=== PATIENT | female | born 1970 | race Caucasian/White ===

== ENCOUNTER 2020-04-02 10:43 | Observation (INO) | payer BC, SELFPAY ==
[2020-04-02] VITALS (12 sets, daily range): BP systolic 90–129; BP diastolic 55–75; PULSE 63–85; RESP 16–20; TEMP 36.7–37.3; O2SAT 96–100; BMI 19.0
[2020-04-02 11:13] LABS: Add Manual Diff / Slide Review NO; Basophils Absolute Auto 0 /uL (0-100); Basophils Percent Auto 0.4 % (0-2); Eosinophils Absolute Auto 0 /uL (0-450); Eosinophils Percent Auto 0.1 % (2-4); Hematocrit 40.5 % (36-46); Hemoglobin 13.6 g/dL (12.0-16.0); Lymphocytes Absolute Auto 1800 /uL (1100-4500); Lymphocytes Percent Auto 16.3 % (25-40); Mean Corpuscular HGB Conc 33.6 % (30-36); Mean Corpuscular Hemoglobin 31.3 PG (26-34); Mean Corpuscular Volume 93.2 fL (80-100); Monocytes Absolute Auto 700 /uL (0-900); Monocytes Percent Auto 6.2 % (3-14); Neutrophils Absolute Auto 8300 /uL (1500-7000); Platelet Count 262 X10^3/uL (150-400); Red Blood Cell Count 4.34 X10^6/uL (4.0-5.2); Red Cell Distribution Width 12.4 % (11.6-14.8); White Blood Cell Count 10.8 X10^3/uL (4.5-11.0)
[2020-04-02 11:15] LABS: Prothrombin Time 11.8 SECONDS (10.1-12.7)
[2020-04-02 11:18] LABS: PTT Partial Thromboplastin Tim 37 SECONDS (26.4-36.2)
[2020-04-02 11:20] LABS: Alanine Aminotransferase 16 IU/L (<35); Albumin 4.8 g/dL (3.5-5.0); Albumin Globulin Ratio 1.6 (1.0-2.8); Alkaline Phosphatase 62 U/L (38-126); Aspartate Aminotransferase 23 IU/L (14-36); BUN Creatinine Ratio 14.5 (6-22); Bilirubin Total 0.8 mg/dL (0.2-1.3); Blood Urea Nitrogen 9 mg/dL (7-17); Calcium 9.1 mg/dL (8.4-10.2); Carbon Dioxide 27 mmol/L (22-32); Chloride 102 mmol/L (98-107); Estimated Glomerular Filt Rate > 60.0 mL/min (>60); Glucose 102 mg/dL (70-100); HEMOLYSIS < 15 (0-50); Lipase 64 U/L (23-300); Potassium 3.7 mmol/L (3.4-5.1); Sodium 138 mmol/L (137-145); Total Protein 7.8 g/dL (6.3-8.2)
--- NOTE | 2020-04-02 11:39 | DI.CT.S_ITS ---
PROCEDURE: CT ABDOMEN PELVIS W CON INDICATIONS: upper abd and back pain, SBO? Stone? TECHNIQUE: After the administration of intravenous contrast, 5 mm thick sections acquired from the diaphragm to the symphysis. 5 mm coronal and sagittal reformats were acquired. For radiation dose reduction, the following was used: automated exposure control, adjustment of mA and/or kV according to patient size. COMPARISON: [facility], CR, XR CHEST 2V, 04/02/2020, 11:36. FINDINGS: Image quality: Excellent. ABDOMEN: Lung bases: Lung bases are clear. Heart size is normal. Solid organs: Liver is normal in size and enhancement. Gallbladder is unremarkable. No calcified gallstones. Biliary system is non dilated. Pancreas enhances normally. Spleen is normal in size and enhancement. No adrenal nodules. Kidneys demonstrate normal size and enhancement, without hydronephrosis. Peritoneum and bowel: Multiple dilated loops of small bowel in the left abdomen. There is a possible transition point in the midline pelvis. Caliber transition is gradual. There is a fecalization within the ileum. No pneumatosis intestinalis. No free air. No fluid collection. Stomach is mildly distended. Scattered colonic diverticuli. No diverticulitis. The appendix is normal in caliber. Nodes and vessels: No retroperitoneal or mesenteric adenopathy by size criteria. Aorta and inferior vena cava are normal in size. Miscellaneous: No ventral hernias. PELVIS: Genitourinary: Bladder wall thickness is normal. Anteverted uterus. Left ovarian cyst measuring 2.8 x 2.2 cm. Miscellaneous: No inguinal hernias or adenopathy. Bones: No suspicious bony lesions. No vertebral body compression fractures. IMPRESSION: 1. Small-bowel obstruction with possible transition point in the pelvis. Stomach is mildly distended. 2. No free air. No fluid collection. 3. No kidney stones or gallstones identified. 4. Colonic diverticulosis. Dictated by: Tomi Eli M.D. on 04/02/2020 at 12:06 Approved by: Tomi Eli M.D. on 04/02/2020 at 12:16
--- NOTE | 2020-04-02 11:40 | DI.RAD.S_ITS ---
PROCEDURE: XR CHEST 2V INDICATIONS: abd pain, intermittent chest pain TECHNIQUE: 2 views of the chest were acquired. COMPARISON: None. FINDINGS: Surgical changes and devices: None. Lungs and pleura: Lungs are clear. No pleural effusions or pneumothorax. Mediastinum: Mediastinal contours are normal. Heart size is normal. Bones and chest wall: No suspicious bony abnormalities. Soft tissues appear unremarkable. IMPRESSION: No acute cardiopulmonary abnormality. Dictated by: Tomi Eli M.D. on 04/02/2020 at 12:05 Approved by: Tomi Eli M.D. on 04/02/2020 at 12:06
[2020-04-02 11:49] LABS: Creatine Kinase 51 U/L (30-135)
[2020-04-02 12:01] LABS: Troponin I < 0.012 ng/mL (0.01-0.034)
[2020-04-02] MEDS: ONDANSETRON 4 MG/2 ML INJ IV (12:02)
[2020-04-02] MEDS: SODIUM CHLORIDE 0.9% 1,000 ML 1000 ML IV (12:02)
[2020-04-02] MEDS: KETOROLAC 60 MG/2 ML VIAL 15 MG IV (12:02)
--- NOTE | 2020-04-02 12:15 | ED_ITS ---
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 with nausea. Patient denies fever, chills or vomiting. Patient denies urinary symptoms such as urgency, dysuria, hematuria, urgency or history of kidney stone. Patient reports she had to readjust postures to cope with the pain every few minutes. Patient reports pain was pretty constant last night and did not get to sleep much and had nothing to eat until this morning at 7 a.m.. Patient was at walk-in clinic and recommended to going to ED for an evaluation. At that time she had a break from discomfort for a couple of hours. After she came home, she had been to eat and drink then had recurring pain. Patient reports now pain is localized in bilateral upper abdomen. She describes her pain as sharp and aching. She had 2 bowel movements this morning but denies diarrhea. Patient denies difficulty breathing or dizziness. Patient denies URI symptoms or known exposure to Covid. She denies chest pain at this time but had experienced chest pain intermittently 3 days ago. Patient has history of . Patient usually lives in [place] and has PCP there and [facility]. Related Data Home Medications Medication Instructions Recorded Confirmed No Known Home Medications 04/02/20 04/02/20 Allergies Allergy/AdvReac Type Severity Reaction Status Date / Time metoclopramide [From Reglan] Allergy Unknown Verified 04/02/20 11:31 prochlorperazine Allergy Unknown Verified 04/02/20 11:31 Sulfa (Sulfonamide Allergy Unknown Verified 04/02/20 11:31 Antibiotics) Review of Systems <SOPHIA Lea - Last Filed: 04/03/20 02:22> Review of Systems Narrative: General: Denies fever, chills, fatigue, malaise, sweats. HEENT: Denies sinus pain, ear pain, sore throat, difficulty swallowing, dizziness. Respiratory: Denies dyspnea, cough, wheezing, hemoptysis, sputum. Cardiovascular: Denies chest pain, palpitations, orthopnea, edema. Gastrointestinal: See HPI : Denies dysuria, frequency, incontinence, hematuria, urinary retention. Musculoskeletal: See HPI Skin: Denies rash, skin lesions, or other. Neurologic: Denies weakness, headache, numbness, change in speech, confusion, seizures, incoordination. Psychiatric: No concerning psychosocial issues. 12-point review of systems is negative except for those stated above. Patient History <Burak Mota [employer] - Last Filed: 04/03/20 02:22> Surgical History (Updated 04/02/20 @ 23:29 by Issac Ac MD) Previous section (Acute) Social History household members: spouse Smoking Status: Never smoker Smoking Status: Never smoker alcohol intake frequency: 0-2 drinks per day Substance Use Type: does not use Exam <Burak MotaSOPHIA - Last Filed: 04/03/20 02:22> Narrative Exam Narrative: GEN: Alert, oriented x 3, well appearing and nourished, and in no acute distress. Head: Normal cephalic, atraumatic. No scalp or temporal tenderness, palpable mass or rash. EYES: Pupils are equal, round, and reactive to light and accommodation. Extraocular muscles are intact bilaterally. There is no subconjunctival hemorrhage, exudate and sclera non-icteric. ENT: Hearing grossly intact. Nose without bleeding, purulent discharge or deviation. Mucous membrane dry, no mucosal lesion. Throat without erythema, tonsillar hypertrophy or exudate. Uvula in midline, airway patent. Neck: Trachea in midline. No JVD, non-tender without lymphadenopathy. No masses or thyroid megaly. Supple, non-tender and no meningeal signs. CARDIAC: Normal regular rate and rhythm without murmurs, gallops, or rubs. No chest wall tenderness. No peripheral edema, cyanosis or pallor. Capillary refill is less than 2 seconds. RESPIRATORY: Lungs are clear to auscultate bilaterally. No cough, wheezes, rales, or rhonchi. No stridor, respiratory distress, increase work of fidelina athing, or accessary muscle used. ABD: Abdomen soft and non-distended. Bilateral upper abdomen tender to palpate. No guarding or rebound tenderness to palpate. Bowel sounds are normal in all 4 quadrants. There is no palpable masses or organomegaly. EXT: Full painless ROM of all extremities with no loss of sensation, strength, effusion or edema. SKIN: Warm, dry, normal color for patient. No erythema, lesions or rash over visible areas. BACK: Nontender without deformity or crepitance. No flank tenderness. NEUROLOGICAL: Alert and oriented to place, time and person. Sensation and motor function intact bilaterally. No facial droops, dysphasia. PSYCHIATRIC: Good judgement and reason, without hallucinations, abnormal affect or abnormal behaviors during the examination. Patient is not suicidal. Initial Vital Signs Initial Vital Signs: Vital Signs Temperature 99.2 F 04/02/20 10:53 Pulse Rate 75 04/02/20 10:53 Respiratory Rate 16 04/02/20 10:53 Blood Pressure 115/72 04/02/20 10:53 Pulse Oximetry 98 04/02/20 10:53 <Nikolas Arriola MD - Last Filed: 04/05/20 12:58> Initial Vital Signs Initial Vital Signs: Vital Signs Temperature 99.2 F 04/02/20 10:53 Pulse Rate 75 04/02/20 10:53 Respiratory Rate 16 04/02/20 10:53 Blood Pressure 115/72 04/02/20 10:53 Pulse Oximetry 98 04/02/20 10:53 Scores <SOPHIA Lea - Last Filed: 04/03/20 02:22> GCS [place] coma scale eye opening: Spontaneous Piyush coma scale verbal response: Orientated Piyush coma scale motor response: Obey commands Piyush coma scale total score: 15 qSOFA Altered Mental Status (GCS <15): No Respiratory rate greater than/equal to 22: No Systolic blood pressure less than or equal to 100: No qSOFA Total: 0 0-1 Not High Risk 1-3 High risk Course <SOPHIA Lea - Last Filed: 04/03/20 02:22> Orders Ordered: Discontinued Medications Hydromorphone HCl (Dilaudid) 0.5 mg IV Q6HR PRN PRN Reason: Pain, Moderate (4-6) Sodium Chloride (Normal Saline 0.9%) 1,000 mls @ 1,000 mls/hr IV BOLUS ONE Stop: 04/02/20 12:37 Last Infusion: 04/02/20 12:55 Dose: 0 mls/hr Documented by: Admin: 04/02/20 12:02 Dose: 1,000 mls/hr Documented by: MAHIN Sodium Chloride (Normal Saline 0.9%) 1,000 mls @ 100 mls/hr IV CONT LONG Last Admin: 04/03/20 01:54 Dose: 100 mls/hr Documented by: Infusion: 04/03/20 01:13 Dose: 100 mls/hr Documented by: Admin: 04/02/20 15:13 Dose: 100 mls/hr Documented by: YOVANNY Influenza Virus Vaccine (Flu Vaccine) 0.5 ml IM .ONCE ONE Stop: 04/02/20 15:31 Ketorolac Tromethamine (Toradol) 15 mg IV NOW ONE Stop: 04/02/20 11:39 Last Admin: 04/02/20 12:02 Dose: 15 mg Documented by: MAHIN Naloxone HCl (Narcan) 0.2 mg IV Q2MIN PRN PRN Reason: Opiate Reversal Ondansetron HCl (Zofran) 4 mg IV NOW ONE Stop: 04/02/20 11:39 Last Admin: 04/02/20 12:02 Dose: 4 mg Documented by: MAHIN Ondansetron HCl (Zofran) 4 mg IV Q4HR PRN PRN Reason: Nausea And Vomiting Consultations Consultation #1: Dr. Ac was consulted with CT findings, physical exam and lab results for small bowel obstruction. He kindly accepted patient's care for small obstruction and possible treatment with IV hydration and bowel rest. Time: 12:30 Vital Signs Vital signs: Vital Signs - 8 hr 04/02/20 10:53 Temperature 99.2 F Pulse Rate 75 Respiratory Rate 16 Blood Pressure 115/72 Pulse Oximetry 98 <Nikolas Arriola MD - Last Filed: 04/05/20 12:58> Orders Ordered: Discontinued Medications Hydromorphone HCl (Dilaudid) 0.5 mg IV Q6HR PRN PRN Reason: Pain, Moderate (4-6) Sodium Chloride (Normal Saline 0.9%) 1,000 mls @ 1,000 mls/hr IV BOLUS ONE Stop: 04/02/20 12:37 Last Infusion: 04/02/20 12:55 Dose: 0 mls/hr Documented by: Admin: 04/02/20 12:02 Dose: 1,000 mls/hr Documented by: MAHIN Sodium Chloride (Normal Saline 0.9%) 1,000 mls @ 100 mls/hr IV CONT LONG Last Admin: 04/03/20 01:54 Dose: 100 mls/hr Documented by: Infusion: 04/03/20 01:13 Dose: 100 mls/hr Documented by: Admin: 04/02/20 15:13 Dose: 100 mls/hr Documented by: YOVANNY Influenza Virus Vaccine (Flu Vaccine) 0.5 ml IM .ONCE ONE Stop: 04/02/20 15:31 Ketorolac Tromethamine (Toradol) 15 mg IV NOW ONE Stop: 04/02/20 11:39 Last Admin: 04/02/20 12:02 Dose: 15 mg Documented by: MAHIN Naloxone HCl (Narcan) 0.2 mg IV Q2MIN PRN PRN Reason: Opiate Reversal Ondansetron HCl (Zofran) 4 mg IV NOW ONE Stop: 04/02/20 11:39 Last Admin: 04/02/20 12:02 Dose: 4 mg Documented by: MAHIN Ondansetron HCl (Zofran) 4 mg IV Q4HR PRN PRN Reason: Nausea And Vomiting Vital Signs Vital signs: Vital Signs - 8 hr 04/02/20 10:53 Temperature 99.2 F Pulse Rate 75 Respiratory Rate 16 Blood Pressure 115/72 Pulse Oximetry 98 MDM - Abdominal Pain <Burak ShankarSOPHIA Hartley - Last Filed: 04/03/20 02:22> Differential Diagnosis Differential diagnosis: Likely abdominal pain, acute appendicitis, calculus of kidney, diverticulitis, pancreatitis, small bowel obstruction and other (Cholecystitis, STEMI, pyelonephritis) Medical Records Attestation: I reviewed the patient's medical records. Lab Data Attestation: I reviewed the patient's lab results. Result diagrams: 04/03/20 04:50 04/03/20 04:50 Labs: Lab Results 04/02/20 04/02/20 04/02/20 Range/Units 11:00 11:00 11:00 WBC 10.8 (4.5-11.0) X10^3/uL RBC 4.34 (4.0-5.2) X10^6/uL Hgb 13.6 (12.0-16.0) g/dL Hct 40.5 (36-46) % MCV 93.2 (80-100) fL MCH 31.3 (26-34) PG MCHC 33.6 (30-36) % RDW 12.4 (11.6-14.8) % Plt Count 262 (150-400) X10^3/uL Neut % (Auto) 77.0 H (50-75) % Lymph % (Auto) 16.3 L (25-40) % [place] % (Auto) 6.2 (3-14) % Eos % (Auto) 0.1 L (2-4) % Baso % (Auto) 0.4 (0-2) % Neut # (Auto) 8300 H (5248-2136) /uL Lymph # (Auto) 1800 (1352-5844) /uL [place] # (Auto) 700 (0-900) /uL Eos # (Auto) 0 (0-450) /uL Baso # (Auto) 0 (0-100) /uL PT 11.8 (10.1-12.7) SECONDS INR 1.0 (0.9-1.3) APTT 37 H (26.4-36.2) SECONDS Sodium 138 (137-145) mmol/L Potassium 3.7 (3.4-5.1) mmol/L Chloride 102 (98-107) mmol/L Carbon Dioxide 27 (22-32) mmol/L BUN 9 (7-17) mg/dL Creatinine 0.62 (0.52-1.04) mg/dL Estimated GFR > 60.0 (>60) mL/min BUN/Creatinine Ratio 14.5 (6-22) Glucose 102 H (70-100) mg/dL Calcium 9.1 (8.4-10.2) mg/dL Total Bilirubin 0.8 (0.2-1.3) mg/dL AST 23 (14-36) IU/L ALT 16 (<35) IU/L Alkaline Phosphatase 62 (38-126) U/L Total Creatine Kinase (30-135) U/L CK-MB (CK-2) CK-MB (CK-2) Rel Index Troponin I (0.01-0.034) ng/mL Total Protein 7.8 (6.3-8.2) g/dL Albumin 4.8 (3.5-5.0) g/dL Globulin 3.0 (1.7-4.1) g/dL Albumin/Globulin Ratio 1.6 (1.0-2.8) Lipase 64 (23-300) U/L COVID-19 PCR (Negative) 04/02/20 04/02/20 Range/Units 11:40 11:41 WBC (4.5-11.0) X10^3/uL RBC (4.0-5.2) X10^6/uL Hgb (12.0-16.0) g/dL Hct (36-46) % MCV (80-100) fL MCH (26-34) PG MCHC (30-36) % RDW (11.6-14.8) % Plt Count (150-400) X10^3/uL Neut % (Auto) (50-75) % Lymph % (Auto) (25-40) % [place] % (Auto) (3-14) % Eos % (Auto) (2-4) % Baso % (Auto) (0-2) % Neut # (Auto) (8003-7238) /uL Lymph # (Auto) (9689-7516) /uL [place] # (Auto) (0-900) /uL Eos # (Auto) (0-450) /uL Baso # (Auto) (0-100) /uL PT (10.1-12.7) SECONDS INR (0.9-1.3) APTT (26.4-36.2) SECONDS Sodium (137-145) mmol/L Potassium (3.4-5.1) mmol/L Chloride (98-107) mmol/L Carbon Dioxide (22-32) mmol/L BUN (7-17) mg/dL Creatinine (0.52-1.04) mg/dL Estimated GFR (>60) mL/min BUN/Creatinine Ratio (6-22) Glucose (70-100) mg/dL Calcium (8.4-10.2) mg/dL Total Bilirubin (0.2-1.3) mg/dL AST (14-36) IU/L ALT (<35) IU/L Alkaline Phosphatase (38-126) U/L Total Creatine Kinase 51 (30-135) U/L CK-MB (CK-2) TNP CK-MB (CK-2) Rel Index TNP Troponin I < 0.012 (0.01-0.034) ng/mL Total Protein (6.3-8.2) g/dL Albumin (3.5-5.0) g/dL Globulin (1.7-4.1) g/dL Albumin/Globulin Ratio (1.0-2.8) Lipase (23-300) U/L COVID-19 PCR Negative (Negative) Point of care testing: Urine Dip Bedside Urine Glucose Negative Bedside Urine Bilirubin - Negative Bedside Urine Ketone +/- 5 Urine Specific [place] 1.015 Bedside Urine Occult Blood +++ Bedside Urine pH 7 Bedside Urine Protein - Negative Bedside Urine Urobilinogen +/- 1mg Bedside Urine Nitrite - Negative Bedside Urine Leukocytes - Negative Esterase Imaging Data CT scan - abdomen/pelvis: Radiologist's Impression: [address] [address] [address] Scan Report Signed Patient: Izabela Crowley R#: [id number] : 1970Acct:[id number] Age/Sex: 50 / FDate of Service: 04/02/20 Loc: ED Accession Number: [id number] Procedure: CT abdomen pelvis w con Ordering Provider: Burak Mota PROCEDURE: CT ABDOMEN PELVIS W CON INDICATIONS: upper abd and back pain, SBO? Stone? TECHNIQUE: After the administration of intravenous contrast, 5 mm thick sections acquired from the diaphragm to the symphysis. 5 mm coronal and sagittal reformats were acquired. For radiation dose reduction, the following was used: automated exposure control, adjustment of mA and/or kV according to patient size. COMPARISON: [facility], CR, XR CHEST 2V, 04/02/2020, 11:36. FINDINGS: Image quality: Excellent. ABDOMEN: Lung bases: Lung bases are clear. Heart size is normal. Solid organs: Liver is normal in size and enhancement. Gallbladder is unremarkable. No calcified gallstones. Biliary system is non dilated. Pancreas enhances normally. Spleen is normal in size and enhancement. No adrenal nodules. Kidneys demonstrate normal size and enhancement, without hydronephrosis. Peritoneum and bowel: Multiple dilated loops of small bowel in the left abdomen. There is a possible transition point in the midline pelvis. Caliber transition is gradual. There is a fecalization within the ileum. No pneumatosis intestinalis. No free air. No fluid collection. Stomach is mildly distended. Scattered colonic diverticuli. No diverticulitis. The appendix is normal in caliber. Nodes and vessels: No retroperitoneal or mesenteric adenopathy by size criteria. Aorta and inferior vena cava are normal in size. Miscellaneous: No ventral hernias. PELVIS: Genitourinary: Bladder wall thickness is normal. Anteverted uterus. Left ovarian cyst measuring 2.8 x 2.2 cm. Miscellaneous: No inguinal hernias or adenopathy. Bones: No suspicious bony lesions. No vertebral body compression fractures. IMPRESSION: 1. Small-bowel obstruction with possible transition point in the pelvis. Stomach is mildly distended. 2. No free air. No fluid collection. 3. No kidney stones or gallstones identified. 4. Colonic diverticulosis. Dictated by: Tomi Eli M.D. on 04/02/2020 at 12:06 Approved by: Tomi Eli M.D. on 04/02/2020 at 12:16 Chest x-ray: Radiologist's Impression: [place] [address] XRay Report Signed Patient: Izabela Crowley YMR#: [id number] : 1970Acct:[id number] Age/Sex: 50 / FDate of Service: 04/02/20 Loc: ED Accession Number: [id number] Procedure: XR chest 2V Ordering Provider: Burak Mota PROCEDURE: XR CHEST 2V INDICATIONS: abd pain, intermittent chest pain TECHNIQUE: 2 views of the chest were acquired. COMPARISON: None. FINDINGS: Surgical changes and devices: None. Lungs and pleura: Lungs are clear. No pleural effusions or pneumothorax. Mediastinum: Mediastinal contours are normal. Heart size is normal. Bones and chest wall: No suspicious bony abnormalities. Soft tissues appear unremarkable. IMPRESSION: No acute cardiopulmonary abnormality. Dictated by: Tomi Eli M.D. on 04/02/2020 at 12:05 Approved by: Tomi Eli M.D. on 04/02/2020 at 12:06 ECG Data Attestation: I personally reviewed and interpreted this ECG as follows: Prior ECG tracings: not available for review Interpretation: Normal sinus rhythm rate at 72. Normal [place]. IN interval 144, QRS duration 68, QT/QTC 386/[address] changes. 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 with nausea. She feels slightly improved this morning but reports recurring pain after she had taken breakfast and fluids. Patient had 2 bowel movements this morning. Patient also reports resolved chest pain a few days ago without other cardiac symptoms. Patient is EKG shows normal sinus rhythm at [address] changes. Chest x-ray without acute findings. Patient is afebrile and hemodynamically stable. Physical exam appreciated bilateral upper abdomen tenderness to palpate. Positive bowel sounds in 4 quadrants. No leukocytosis. Stable H&H of 13.6/40.5. Unremarkable chemistry test, liver function test, lipase. Cardiac enzymes were negative. CT of abdomen pelvis obtained and showed small bowel obstruction with possible transition point in the pelvis with mildly distended stomach. There is no free air or free fluid seen in abdomen. Also seen colonic diverticulosis without acute inflammatory changes and normal appendix. Dr. Ac consulted for admission and treatment for small bowel obstruction with IV hydration and bowel rest with pain and nausea management. Patient and spouse informed the findings and pending admission to hospital. They both verbalized understanding in agreement with treatment plan. <Nikolas Arriola MD - Last Filed: 04/05/20 12:58> Lab Data Labs: Lab Results 04/02/20 04/02/20 04/02/20 Range/Units 11:00 11:00 11:00 WBC 10.8 (4.5-11.0) X10^3/uL RBC 4.34 (4.0-5.2) X10^6/uL Hgb 13.6 (12.0-16.0) g/dL Hct 40.5 (36-46) % MCV 93.2 (80-100) fL MCH 31.3 (26-34) PG MCHC 33.6 (30-36) % RDW 12.4 (11.6-14.8) % Plt Count 262 (150-400) X10^3/uL Neut % (Auto) 77.0 H (50-75) % Lymph % (Auto) 16.3 L (25-40) % [place] % (Auto) 6.2 (3-14) % Eos % (Auto) 0.1 L (2-4) % Baso % (Auto) 0.4 (0-2) % Neut # (Auto) 8300 H (2452-9641) /uL Lymph # (Auto) 1800 (9855-0219) /uL [place] # (Auto) 700 (0-900) /uL Eos # (Auto) 0 (0-450) /uL Baso # (Auto) 0 (0-100) /uL PT 11.8 (10.1-12.7) SECONDS INR 1.0 (0.9-1.3) APTT 37 H (26.4-36.2) SECONDS Sodium 138 (137-145) mmol/L Potassium 3.7 (3.4-5.1) mmol/L Chloride 102 (98-107) mmol/L Carbon Dioxide 27 (22-32) mmol/L BUN 9 (7-17) mg/dL Creatinine 0.62 (0.52-1.04) mg/dL Estimated GFR > 60.0 (>60) mL/min BUN/Creatinine Ratio 14.5 (6-22) Glucose 102 H (70-100) mg/dL Calcium 9.1 (8.4-10.2) mg/dL Total Bilirubin 0.8 (0.2-1.3) mg/dL AST 23 (14-36) IU/L ALT 16 (<35) IU/L Alkaline Phosphatase 62 (38-126) U/L Total Creatine Kinase (30-135) U/L CK-MB (CK-2) CK-MB (CK-2) Rel Index Troponin I (0.01-0.034) ng/mL Total Protein 7.8 (6.3-8.2) g/dL Albumin 4.8 (3.5-5.0) g/dL Globulin 3.0 (1.7-4.1) g/dL Albumin/Globulin Ratio 1.6 (1.0-2.8) Lipase 64 (23-300) U/L COVID-19 PCR (Negative) 04/02/20 04/02/20 Range/Units 11:40 11:41 WBC (4.5-11.0) X10^3/uL RBC (4.0-5.2) X10^6/uL Hgb (12.0-16.0) g/dL Hct (36-46) % MCV (80-100) fL MCH (26-34) PG MCHC (30-36) % RDW (11.6-14.8) % Plt Count (150-400) X10^3/uL Neut % (Auto) (50-75) % Lymph % (Auto) (25-40) % [place] % (Auto) (3-14) % Eos % (Auto) (2-4) % Baso % (Auto) (0-2) % Neut # (Auto) (1141-1436) /uL Lymph # (Auto) (1979-0006) /uL [place] # (Auto) (0-900) /uL Eos # (Auto) (0-450) /uL Baso # (Auto) (0-100) /uL PT (10.1-12.7) SECONDS INR (0.9-1.3) APTT (26.4-36.2) SECONDS Sodium (137-145) mmol/L Potassium (3.4-5.1) mmol/L Chloride (98-107) mmol/L Carbon Dioxide (22-32) mmol/L BUN (7-17) mg/dL Creatinine (0.52-1.04) mg/dL Estimated GFR (>60) mL/min BUN/Creatinine Ratio (6-22) Glucose (70-100) mg/dL Calcium (8.4-10.2) mg/dL Total Bilirubin (0.2-1.3) mg/dL AST (14-36) IU/L ALT (<35) IU/L Alkaline Phosphatase (38-126) U/L Total Creatine Kinase 51 (30-135) U/L CK-MB (CK-2) TNP CK-MB (CK-2) Rel Index TNP Troponin I < 0.012 (0.01-0.034) ng/mL Total Protein (6.3-8.2) g/dL Albumin (3.5-5.0) g/dL Globulin (1.7-4.1) g/dL Albumin/Globulin Ratio (1.0-2.8) Lipase (23-300) U/L COVID-19 PCR Negative (Negative) Point of care testing: Urine Dip Bedside Urine Glucose Negative Bedside Urine Bilirubin - Negative Bedside Urine Ketone +/- 5 Urine Specific [place] 1.015 Bedside Urine Occult Blood +++ Bedside Urine pH 7 Bedside Urine Protein - Negative Bedside Urine Urobilinogen +/- 1mg Bedside Urine Nitrite - Negative Bedside Urine Leukocytes - Negative Esterase Discharge Plan Departure Patient Disposition: Admitted As Inpatient Clinical Impression: Small bowel obstruction Discharge Date/Time: 04/02/20 13:40 Instructions: Small Bowel Obstruction Admit Date/Time: 04/02/20 12:58 Admit Provider: Issac Ac <Nikolas Arriola MD - Last Filed: 04/05/20 12:58> Cosign ED Attending Cosignature Attestation: I was immediately available in the department for consultation. This documentation has been reviewed and I agree with assessment and plan. Supervised by Nikolas Arriola MD
[2020-04-02 12:26] LABS: COVID19 -Nasal RAPID Negative (Negative)
--- NOTE | 2020-04-02 13:22 | DI.RAD.S_ITS ---
PROCEDURE: FL SMALL BOWEL FOLLOW THROUGH INDICATIONS: small bowel obstruction COMPARISON: [facility], CT, CT ABDOMEN PELVIS W CON, 04/02/2020, 11:43. FINDINGS: KUB: Preprocedural chief clerk shelter film demonstrates scattered small bowel and colonic gas. No definite dilated loops of bowel seen. The stomach is mildly distended. No suspicious abdominal calcifications. Visualized solid organ contours appear normal. No suspicious bony abnormalities. A contrast excreted into the urinary bladder and renal collecting systems. Small bowel: There is normal transit time of barium through the small bowel reaching the colon at 45 minutes. The dilated loops of small bowel in the left abdomen seen on CT earlier today are no longer identified. Mucosal folds are smooth and of normal thickness. No obvious strictures, intraluminal masses, or extrinsic mass effects are noted. The terminal ileum is identified, and is normal in morphology. IMPRESSION: Resolved dilated loops of small bowel in the left abdomen. Findings suggestive of resolved small bowel obstruction. Small bowel transit time 45 minutes. Dictated by: Tomi Eli M.D. on 04/02/2020 at 15:14 Approved by: Tomi Eli M.D. on 04/02/2020 at 15:16
--- NOTE | 2020-04-02 13:23 | PC.NURSE ---
report given to RN on MSU
--- NOTE | 2020-04-02 14:58 | PC.NURSE ---
1500- Patient just arrived to her room. VS taken, and she has been settled in. She has been oriented to the room and callbell. is in room and visiting.
[2020-04-02] MEDS: SODIUM CHLORIDE 0.9% 1,000 ML 100 ML IV (15:13)
--- NOTE | 2020-04-02 22:44 | PC.NURSE ---
Evening shift Report received, care assumed 1530. Patient admitted minutes before. VSS. C/o abdominal pain 0-2. C/o nausea, declines medication at this time. Experiencing diarrhea since swallowing barium for small bowel-through; low fall risk, ambulating independently to bathroom. Positive, though hypoactive, bowel tones. C/o general malaise. Improvement throughout evening. Pain and nausea both resolved. Small bowel follow-through indicates resolution of obstruction. Clear liquids ordered, tolerated.
--- NOTE | 2020-04-02 23:27 | P.HP_ITS ---
History of Present Illness History of Present Illness Date Patient Seen: 04/02/20 Time Patient Seen: 23:29 Chief complaint: abdominal pain since last night Narrative: This is a 50-year-old woman seen in the hospital for small bowel obstruction. She has a history of section she is having some worsening abdominal pain nausea and vomiting presented to the emergency room. She underwent a CT scan that demonstrated a small-bowel obstruction with some air-fl uid levels and possible transition point. She was afebrile white blood cell count 11. She was uncertain as to when her last bowel movement she had been able to pass flatus. Patient History Surgical History (Updated 04/02/20 @ 23:29 by Issac Ac MD) Previous section (Acute) Family & Social History Social History: household members spouse Prior Living Arrangements House Safety & Behavioral: Feels Safe in Current Yes Environment Been Physically Hurt or No Threatened By a Person Suicidal Ideation Description None Suicide Plan Description No Plan Tobacco & Substance use: Smoking Status Never smoker alcohol intake frequency holiday/special occasion Substance Use Type does not use Meds Home Medications and Allergies Home Medications Medication Instructions Recorded Confirmed Type No Known Home Medications 04/02/20 04/02/20 History Allergies Allergy/AdvReac Type Severity Reaction Status Date / Time metoclopramide [From Reglan] Allergy Unknown Verified 04/02/20 11:31 prochlorperazine Allergy Unknown Verified 04/02/20 11:31 Sulfa (Sulfonamide Allergy Unknown Verified 04/02/20 11:31 Antibiotics) Review of Systems Review of Systems Narrative: A 10 point review of systems is negative except as noted in the HPI Exam Vital Signs (past 8 hours): - 04/02/20 16:09 04/02/20 19:11 Temperature 98.0 F Pulse Rate 72 Respiratory Rate 16 Blood Pressure 107/64 Pulse Oximetry 98 100 Oxygen Delivery Method Room Air Oxygen Flow Rate 0 Narrative Exam Narrative: General-no acute distress, well nourished HEENT-moist mucous membranes, no scleral icterus Neck-supple, no lymphadenopathy Chest- non labored respirations, clear to auscultation bilaterally Cardiac-regular rate no peripheral edema Abdomen-soft, minimally tender Extremities-warm, well perfused Neurological-alert and oriented, no focal deficits Objective Labs Result Diagrams: 04/02/20 11:00 04/02/20 11:00 Labs: Laboratory Results - last 24 hr 04/02/20 04/02/20 04/02/20 11:00 11:00 11:00 WBC 10.8 RBC 4.34 Hgb 13.6 Hct 40.5 MCV 93.2 MCH 31.3 MCHC 33.6 RDW 12.4 Plt Count 262 Neut % (Auto) 77.0 H Lymph % (Auto) 16.3 L [place] % (Auto) 6.2 Eos % (Auto) 0.1 L Baso % (Auto) 0.4 Neut # (Auto) 8300 H Lymph # (Auto) 1800 [place] # (Auto) 700 Eos # (Auto) 0 Baso # (Auto) 0 PT 11.8 INR 1.0 APTT 37 H Sodium 138 Potassium 3.7 Chloride 102 Carbon Dioxide 27 BUN 9 Creatinine 0.62 Estimated GFR > 60.0 BUN/Creatinine Ratio 14.5 Glucose 102 H Calcium 9.1 Total Bilirubin 0.8 AST 23 ALT 16 Alkaline Phosphatase 62 Total Creatine Kinase CK-MB (CK-2) CK-MB (CK-2) Rel Index Troponin I Total Protein 7.8 Albumin 4.8 Globulin 3.0 Albumin/Globulin Ratio 1.6 Lipase 64 COVID-19 PCR 04/02/20 04/02/20 11:40 11:41 WBC RBC Hgb Hct MCV MCH MCHC RDW Plt Count Neut % (Auto) Lymph % (Auto) [place] % (Auto) Eos % (Auto) Baso % (Auto) Neut # (Auto) Lymph # (Auto) [place] # (Auto) Eos # (Auto) Baso # (Auto) PT INR APTT Sodium Potassium Chloride Carbon Dioxide BUN Creatinine Estimated GFR BUN/Creatinine Ratio Glucose Calcium Total Bilirubin AST ALT Alkaline Phosphatase Total Creatine Kinase 51 CK-MB (CK-2) TNP CK-MB (CK-2) Rel Index TNP Troponin I < 0.012 Total Protein Albumin Globulin Albumin/Globulin Ratio Lipase COVID-19 PCR Negative Assessment & Plan Assessment & Plan narrative: 50-year-old woman admitted to the hospital for a small small-bowel obstruction history of abdominal surgery. I reviewed her CT demonstrates air-fluid levels as well as a possible transition point. I suspect she has an adhesive small bowel obstruction bowel. A small-bowel follow-through study was performed in the interval and demonstrates transit of contrast into the colon. -clear liquid diet and advance as tolerated -anticipate discharge home tomorrow -SCDs for VT prophylaxis Quality VTE Deep Vein Thrombosis/Pulmonary Embolism Present on Admission: No
[2020-04-03 00:05] VITALS: O2SAT 96
[2020-04-03] MEDS: SODIUM CHLORIDE 0.9% 1,000 ML 100 ML IV (01:54)
[2020-04-03 05:00] VITALS: BP 91/52; PULSE 69; RESP 16; TEMP 36.1; O2SAT 100
[2020-04-03 05:31] LABS: BUN Creatinine Ratio 12.5 (6-22); Blood Urea Nitrogen 9 mg/dL (7-17); Calcium 7.8 mg/dL (8.4-10.2); Carbon Dioxide 27 mmol/L (22-32); Chloride 111 mmol/L (98-107); Estimated Glomerular Filt Rate > 60.0 mL/min (>60); Glucose 77 mg/dL (70-100); HEMOLYSIS < 15 (0-50); Magnesium 2.1 mg/dL (1.6-2.3); Phosphorous 3.1 mg/dL (2.5-4.5); Potassium 3.6 mmol/L (3.4-5.1); Sodium 141 mmol/L (137-145)
[2020-04-03 05:42] LABS: Add Manual Diff / Slide Review NO; Basophils Absolute Auto 0 /uL (0-100); Basophils Percent Auto 0.3 % (0-2); Eosinophils Absolute Auto 100 /uL (0-450); Eosinophils Percent Auto 0.8 % (2-4); Hematocrit 34.5 % (36-46); Hemoglobin 11.7 g/dL (12.0-16.0); Lymphocytes Absolute Auto 2700 /uL (1100-4500); Lymphocytes Percent Auto 32.8 % (25-40); Mean Corpuscular HGB Conc 33.9 % (30-36); Mean Corpuscular Hemoglobin 31.8 PG (26-34); Monocytes Absolute Auto 800 /uL (0-900); Monocytes Percent Auto 10.2 % (3-14); Neutrophils Absolute Auto 4600 /uL (1500-7000); Neutrophils Percent Auto 55.9 % (50-75); Platelet Count 197 X10^3/uL (150-400); Red Blood Cell Count 3.67 X10^6/uL (4.0-5.2); Red Cell Distribution Width 12.4 % (11.6-14.8); White Blood Cell Count 8.2 X10^3/uL (4.5-11.0)
[2020-04-03 06:18] VITALS: O2SAT 100
[2020-04-03 08:00] VITALS: BP 89/49; PULSE 77; RESP 14; TEMP 36.7; O2SAT 97
--- NOTE | 2020-04-03 09:36 | PC.NURSE ---
Patient denies pain, abdomen is soft. She is going to be discharged home soon. Up independently
--- NOTE | 2020-04-03 10:13 | CM.DANOTE ---
DCP/Assessment: Reviewed chart. Patient is a 50yr old female admitted to [facility] with abdominal pain. No PCP listed. Primary payor is [facility]. Met with patient and spouse/Nikolas at bedside. Patient up in room I and alert and oriented. Patient reports that she had very bad stomach ache last night which brought her into the ED. Since yesterday patient is feeling much better and it is anticipated that what she had has resolved. D/C scheduled for this AM. Patient and spouse are residents of [place] but do have small place on [facility] which they are visiting. No identified d/c planning needs at this time. P: Home ALEJANDRO Blevins Discharge Planning/Care Management CM Discharge Assessment Start: 04/03/20 10:09 Freq: Status: Active Protocol: Document 04/03/20 10:10 KJS (Rec: 04/03/20 10:13 KJS [id number]) Discharge Planning Assessment Assigned Valet Parking Attendant ALEJANDRO Blevins Contact Information Nikolas Benitez (spouse) [phone] Advance Directives? No History Provided By Patient,Significant Other, Medical Record Prior Living Arrangements House Household Members spouse Type of transporation used prior to Drives own vehicle admit Independent with ADL's Yes Is patient alert and oriented? Yes Caregiver for Another No Barriers to Discharge No Discharge Plan Home Transportation Arrangement Spouse to provide transport. Referrals Initiated None needed Whiteboard Updated in Patient Room with Yes name and ext. # of Valet Parking Attendant Review Status In Process Next Review Type Continued Stay Review
== END 2020-04-03 11:21 | disposition home or self-care (01) ==
LOC: ED 11:46 → AC 13:15
PROVIDERS: Emergency Medicine; Admitting Provider Surgery; Emergency Provider Nurse Practitioner Family; Referring Provider Nurse Practitioner Family; Visit Provider Surgery
DX: K56.609 Unspecified intestinal obstruction, unspecified as to partial versus complete obstruction (principal); R10.10 Upper abdominal pain, unspecified; R11.2 Nausea with vomiting, unspecified; Z98.890 Other specified postprocedural states; Z11.59 Encounter for screening for other viral diseases
CPT/HCPCS: 36415; 71046; 74177; 74250; 80048; 80053; 81003; 82550; 83690; 83735; 84100; 84484; 85025; 85610; 85730; 87635; 93005; 96361; 96374; 96375; 99218; 99284; G0378; J1885; J2405; Q9967

== ENCOUNTER → 2020-08-30 07:49 | Outpatient (CLI) | payer BC, SELFPAY ==
[2020-04-02 15:21] VITALS: BMI 19.0
[2020-08-30 09:16] LABS: Add Manual Diff / Slide Review NO; Basophils Absolute Auto 0 /uL (0-100); Basophils Percent Auto 0.8 % (0-2); Eosinophils Absolute Auto 200 /uL (0-450); Eosinophils Percent Auto 3.6 % (2-4); Hematocrit 40.8 % (36-46); Hemoglobin 13.6 g/dL (12.0-16.0); Lymphocytes Absolute Auto 1800 /uL (1100-4500); Lymphocytes Percent Auto 34.5 % (25-40); Mean Corpuscular HGB Conc 33.4 % (30-36); Mean Corpuscular Hemoglobin 31.2 PG (26-34); Mean Corpuscular Volume 93.3 fL (80-100); Monocytes Absolute Auto 400 /uL (0-900); Monocytes Percent Auto 8.6 % (3-14); Neutrophils Absolute Auto 2700 /uL (1500-7000); Neutrophils Percent Auto 52.5 % (50-75); Platelet Count 245 X10^3/uL (150-400); Red Blood Cell Count 4.37 X10^6/uL (4.0-5.2); White Blood Cell Count 5.1 X10^3/uL (4.5-11.0)
[2020-08-30 09:47] LABS: Alanine Aminotransferase 14 IU/L (<35); Albumin 4.4 g/dL (3.5-5.0); Albumin Globulin Ratio 1.8 (1.0-2.8); Alkaline Phosphatase 50 U/L (38-126); Aspartate Aminotransferase 20 IU/L (14-36); BUN Creatinine Ratio 17.5 (6-22); Bilirubin Total 0.4 mg/dL (0.2-1.3); Blood Urea Nitrogen 14 mg/dL (7-17); Calcium 9.3 mg/dL (8.4-10.2); Carbon Dioxide 28 mmol/L (22-32); Chloride 102 mmol/L (98-107); Cholesterol 163 mg/dL (140-199); Estimated Glomerular Filt Rate > 60.0 mL/min (>60); Globulin 2.4 g/dL (1.7-4.1); Glucose 83 mg/dL (70-100); HDL Cholesterol 50 mg/dL (40-60); HEMOLYSIS < 15 (0-50); LDL Cholesterol Calculated 98 mg/dL (<100); Potassium 4.5 mmol/L (3.4-5.1); Sodium 137 mmol/L (137-145); Total Protein 6.8 g/dL (6.3-8.2); Triglycerides 74 mg/dL (35-150)
== END ==
PROVIDERS: PCP Registered Nurse; Referring Provider Registered Nurse; Visit Provider Registered Nurse
DX: Z00.00 Encounter for general adult medical examination without abnormal findings (principal); F41.9 Anxiety disorder, unspecified; R89.9 Unspecified abnormal finding in specimens from other organs, systems and tissues; Z82.49 Family history of ischemic heart disease and other diseases of the circulatory system
CPT/HCPCS: 36415; 80053; 80061; 85025

== ENCOUNTER → 2023-03-16 14:38 | Outpatient (CLI) | payer BC, SELFPAY ==
[2020-04-02 15:21] VITALS: BMI 19.0
[2023-03-16 15:28] LABS: Hemoglobin 13.3 g/dL (12.0-16.0); Mean Corpuscular HGB Conc 34.2 % (30-36); Mean Corpuscular Hemoglobin 31.3 PG (26-34); Mean Corpuscular Volume 91.5 fL (80-100); Platelet Count 235 X10^3/uL (150-400); Red Blood Cell Count 4.26 X10^6/uL (4.0-5.2); Red Cell Distribution Width 12.6 % (11.6-14.8); White Blood Cell Count 7.4 X10^3/uL (4.5-11.0)
[2023-03-16 15:42] LABS: Alanine Aminotransferase 22 IU/L (<35); Albumin 4.4 g/dL (3.5-5.0); Albumin Globulin Ratio 1.7 (1.0-2.8); Alkaline Phosphatase 59 U/L (38-126); Aspartate Aminotransferase 26 IU/L (14-36); BUN Creatinine Ratio 15.9 (6-22); Bilirubin Total 0.2 mg/dL (0.2-1.3); Blood Urea Nitrogen 11 mg/dL (7-17); Calcium 9.4 mg/dL (8.4-10.2); Carbon Dioxide 30 mmol/L (22-32); Chloride 101 mmol/L (98-107); Cholesterol 178 mg/dL (140-199); Estimated Glomerular Filt Rate > 60 mL/min (>60); Globulin 2.6 g/dL (1.7-4.1); Glucose 99 mg/dL (70-100); HDL Cholesterol 52 mg/dL (40-60); HEMOLYSIS < 15 (0-50); LDL Cholesterol Calculated 90 mg/dL (<100); Sodium 139 mmol/L (137-145); Triglycerides 179 mg/dL (35-150)
[2023-03-16 16:09] LABS: TSH w/ Reflex to FT4 1.41 uIU/mL (0.47-4.68)
[2023-03-19 11:49] LABS: Alder IgE <0.10 kU/L (Class 0); Alternaria alternata IgE <0.10 kU/L (Class 0); Aspergillus fumigatus IgE <0.10 kU/L (Class 0); Box Elder IgE <0.10 kU/L (Class 0); Cat Dander IgE <0.10 kU/L (Class 0); Cladosporium herbarum IgE <0.10 kU/L (Class 0); Cockroach IgE <0.10 kU/L (Class 0); Cottonwood IgE <0.10 kU/L (Class 0); D farinae IgE 0.56 kU/L (Class II); D pteronyssinus IgE 0.76 kU/L (Class II); Dog Dander IgE <0.10 kU/L (Class 0); Elm Tree IgE <0.10 kU/L (Class 0); Immunoglobulin E 23 IU/mL (6-495); Mountain Cedar IgE <0.10 kU/L (Class 0); Mouse Urine Proteins IgE <0.10 kU/L (Class 0); Nettle IgE <0.10 kU/L (Class 0); Oak Tree IgE <0.10 kU/L (Class 0); Penicillium chrysogen IgE <0.10 kU/L (Class 0); Pigweed, Common IgE <0.10 kU/L (Class 0); Ragweed, Short <0.10 kU/L (Class 0); Sheep Sorrel IgE <0.10 kU/L (Class 0); Silver Birch IgE <0.10 kU/L (Class 0); Timothy Grass IgE <0.10 kU/L (Class 0); Walnut Allery IgE < 0.10 kU/L (Class 0); White ash IgE <0.10 kU/L (Class 0)
== END ==
PROVIDERS: PCP Registered Nurse Diabetes Educator; Referring Provider Registered Nurse Diabetes Educator; Visit Provider Registered Nurse Diabetes Educator
DX: Z00.00 Encounter for general adult medical examination without abnormal findings (principal); J30.9 Allergic rhinitis, unspecified
CPT/HCPCS: 36415; 80053; 80061; 82785; 84443; 85027; 86003

== ENCOUNTER → 2023-04-19 09:31 | Outpatient (CLI) | payer BC, SELFPAY ==
[2020-04-02 15:21] VITALS: BMI 19.0
== END ==
PROVIDERS: PCP Registered Nurse Diabetes Educator; Referring Provider Registered Nurse Diabetes Educator; Visit Provider Registered Nurse Diabetes Educator
DX: R00.2 Palpitations (principal)
CPT/HCPCS: 93242

== ENCOUNTER → 2024-05-26 15:02 | Outpatient (CLI) | payer BC, SELFPAY ==
[2020-04-02 15:21] VITALS: BMI 19.0
[2024-05-26 15:30] LABS: Add Manual Diff / Slide Review NO; Basophils Absolute Auto 0 /uL (0-100); Basophils Percent Auto 0.8 % (0-2); Eosinophils Absolute Auto 100 /uL (0-450); Eosinophils Percent Auto 2.2 % (2-4); Hematocrit 39.5 % (36-46); Hemoglobin 13.1 g/dL (12.0-16.0); Lymphocytes Absolute Auto 2100 /uL (1100-4500); Lymphocytes Percent Auto 38.9 % (25-40); Mean Corpuscular HGB Conc 33.2 % (30-36); Mean Corpuscular Hemoglobin 30.9 PG (26-34); Mean Corpuscular Volume 93.3 fL (80-100); Monocytes Absolute Auto 500 /uL (0-900); Monocytes Percent Auto 10.1 % (3-14); Neutrophils Absolute Auto 2600 /uL (1500-7000); Platelet Count 227 X10^3/uL (150-400); Red Blood Cell Count 4.23 X10^6/uL (4.0-5.2); Red Cell Distribution Width 12.5 % (11.6-14.8); White Blood Cell Count 5.3 X10^3/uL (4.5-11.0)
[2024-05-26 15:45] LABS: Alanine Aminotransferase 24 IU/L (<35); Albumin 4.4 g/dL (3.5-5.0); Albumin Globulin Ratio 1.8 (1.0-2.8); Alkaline Phosphatase 64 U/L (38-126); Aspartate Aminotransferase 28 IU/L (14-36); BUN Creatinine Ratio 17.3 (6-22); Bilirubin Total 0.3 mg/dL (0.2-1.3); Blood Urea Nitrogen 13 mg/dL (7-17); Carbon Dioxide 30 mmol/L (22-32); Chloride 102 mmol/L (98-107); Estimated Glomerular Filt Rate > 60 mL/min (>60); Globulin 2.4 g/dL (1.7-4.1); Glucose 94 mg/dL (70-100); HEMOLYSIS < 15 (0-50); Sodium 136 mmol/L (137-145); Total Protein 6.8 g/dL (6.3-8.2)
[2024-05-26 16:34] LABS: Vitamin B12 > 1000 pg/mL (239-931)
[2024-05-30 14:09] LABS: Albumin 3.5 g/dL (2.9-4.4); Alpha 1 Globulin 0.2 g/dL (0.0-0.4); Alpha 2 Globulin 0.8 g/dL (0.4-1.0); Beta 1 Globulin 1.1 g/dL (0.7-1.3); Gamma Globulin 0.9 g/dL (0.4-1.8); Protein, Total 6.5 g/dL (6.0-8.5)
[2024-05-31 15:39] LABS: ANA Screen, IFA Negative (.)
== END ==
PROVIDERS: PCP Registered Nurse Diabetes Educator; Referring Provider Physician Assistant; Visit Provider Physician Assistant
DX: T69.1XXA Chilblains, initial encounter (principal)
CPT/HCPCS: 36415; 80053; 82607; 84155; 84165; 85025; 86038